=== PATIENT | female | born 1955 | race African-American/Black ===

== ENCOUNTER 2019-01-26 01:44 | Emergency (ER) | payer MEDICAID ==
[~2019-01-26] VITALS: Ht 162.6 cm; Wt 81.6 kg
--- NOTE | 2019-01-26 02:11 | NUR ---
C/C R EYE PAIN SINCE 8 PM, REDNESS NOTED, +BURNING TO ER BED 4, AWAITING MED EVAL
[2019-01-26] MEDS ORDERED: FLUORESCEIN SODIUM OPHTH 1 EA STRIP ONE (02:17)
[2019-01-26] MEDS ORDERED: TDAP [DIPH/PERTUSSIS/TET] 0.5 ML VIAL IM ONE ×2 (02:29→03:00)
[2019-01-26] MEDS ORDERED: TETRACAINE HCL 0.5% OPHTALMIC 15 ML BOTTLE OP ONE (02:30)
[2019-01-26 02:53] VITALS: BP 156/105
--- NOTE | 2019-01-26 02:53 | NUR ---
Patient discharged to home in stable condition. Written and verbal after care instructions given. Patient verbalizes understanding of instruction.
== END 2019-01-26 02:53 | disposition home or self-care (01) ==
LOC: ER 01:47
DX: S05.01XA Injury of conjunctiva and corneal abrasion without foreign body, right eye, initial encounter (principal); I10 Essential (primary) hypertension; Z85.3 Personal history of malignant neoplasm of breast; Z96.653 Presence of artificial knee joint, bilateral; X58.XXXA Exposure to other specified factors, initial encounter; Y93.89 Activity, other specified; Y92.89 Other specified places as the place of occurrence of the external cause; Y99.8 Other external cause status
CPT/HCPCS: 90715

== ENCOUNTER 2021-07-31 02:03 | Emergency (ER) | payer MEDICAID, OTHER ==
[~2021-07-31] VITALS: Ht 162.6 cm; Wt 90.7 kg
--- NOTE | 2021-07-31 02:24 | NUR ---
TO ER BED 10. [id number] FROM HOME C/O SYNCOPAL EPISODE WHILE IN THE BATHROOM. DENIES FALL. CONNECTED TO MONITOR. AWAITING MD STEVE
--- NOTE | 2021-07-31 02:53 | NUR ---
ADVERTISING DIRECTOR AT PT'S BEDSIDE
[2021-07-31 03:01] LABS: BASOPHILS % (AUTO) 0.6 % (0.0-2.0); EOSINOPHILS % (AUTO) 1.5 % (0.0-6.0); HEMATOCRIT 39 % (33-45); HEMOGLOBIN 12.8 g/dL (11.5-14.8); LYMPHOCYTES # (AUTO) 1.4 K/uL (0.8-4.8); LYMPHOCYTES % (AUTO) 28.1 % (20.0-44.0); MEAN CORPUSCULAR HGB CONC 32 g/dl (31.0-36.0); MEAN CORPUSCULAR VOLUME 84 fL (82-100); MONOCYTES # (AUTO) 0.5 K/uL (0.1-1.30); MONOCYTES % (AUTO) 9.9 % (2.0-12.0); NEUTROPHILS # (AUTO) 2.9 K/uL (1.8-8.9); NEUTROPHILS % (AUTO) 59.9 % (43.0-81.0); PLATELET COUNT (AUTO) 169 K/uL (150-450); RED BLOOD CELL COUNT(AUTO) 4.72 MIL/uL (4.0-5.2); WHITE BLOOD COUNT (AUTO) 4.9 K/uL (4.3-11.0)
[2021-07-31 03:15] LABS: ALBUMIN 3.6 g/dL (3.4-5.0); BILIRUBIN,DIRECT 0.1 mg/dL (0.0-0.2); BILIRUBIN,TOTAL 0.3 mg/dL (0.2-1.0); CALCIUM, SERUM 9.3 mg/dL (8.5-10.1); CREATININE 1.1 mg/dL (0.6-1.3); POTASSIUM 3.5 mmol/L (3.5-5.1); TOTAL PROTEIN, SERUM 7.9 g/dL (6.4-8.2)
--- NOTE | 2021-07-31 04:22 | NUR ---
Patient discharged to home in stable condition. Written and verbal after care instructions given. Patient verbalizes understanding of instruction.
[2021-07-31 05:12] VITALS: BP 154/83
== END 2021-07-31 05:13 | disposition home or self-care (01) ==
LOC: ER 02:06
DX: R55 Syncope and collapse (principal); I10 Essential (primary) hypertension; E11.9 Type 2 diabetes mellitus without complications; Z85.3 Personal history of malignant neoplasm of breast; Z96.653 Presence of artificial knee joint, bilateral
CPT/HCPCS: 36415; 70450-TC; 71045-TC; 80048-TC; 80076-TC; 85025-TC

== ENCOUNTER 2022-01-24 20:30 | Inpatient (IN) | payer OTHER ==
[~2022-01-24] VITALS: Ht 160 cm; Wt 86.2 kg
--- NOTE | 2022-01-24 22:07 | NUR ---
URINE COLLECTED AND SENT TO LAB
[2022-01-24] MEDS ORDERED: ONDANSETRON HCL/PF 4 MG/2 ML VIAL IVP ONE (22:30)
[2022-01-24] MEDS ORDERED: MORPHINE SULFATE INJ 2 MG/ML DISP.SYRIN IV ONE (22:30)
[2022-01-24] MEDS ORDERED: IV NS 0.9% 1,000 ML BAG IV ONE (22:30)
--- NOTE | 2022-01-24 22:39 | NUR ---
taken to radiology
--- NOTE | 2022-01-24 22:39 | NUR ---
blood drawn and sent to lab
[2022-01-24 22:46] LABS: BASOPHILS % (AUTO) 0.9 % (0.0-2.0); EOSINOPHILS % (AUTO) 2.4 % (0.0-6.0); HEMATOCRIT 40 % (33-45); HEMOGLOBIN 12.7 g/dL (11.5-14.8); LYMPHOCYTES # (AUTO) 1.7 K/uL (0.8-4.8); LYMPHOCYTES % (AUTO) 37.1 % (20.0-44.0); MEAN CORPUSCULAR HGB CONC 32 g/dl (31.0-36.0); MEAN CORPUSCULAR VOLUME 83 fL (82-100); MONOCYTES # (AUTO) 0.5 K/uL (0.1-1.30); MONOCYTES % (AUTO) 11.5 % (2.0-12.0); NEUTROPHILS # (AUTO) 2.2 K/uL (1.8-8.9); NEUTROPHILS % (AUTO) 48.1 % (43.0-81.0); PLATELET COUNT (AUTO) 181 K/uL (150-450); RED BLOOD CELL COUNT(AUTO) 4.88 MIL/uL (4.0-5.2); WHITE BLOOD COUNT (AUTO) 4.7 K/uL (4.3-11.0)
[2022-01-24 22:52] LABS: BILIRUBIN,URINE NEGATIVE (NEGATIVE); COLOR,URINE YELLOW (YELLOW); LEUKOCYTE ESTERASE ,URINE 1+ (NEGATIVE); NITRITE, URINE NEGATIVE (NEGATIVE); PROTEIN,URINE NEGATIVE (NEGATIVE); UGLUCOSE NEGATIVE (NEGATIVE); UROBILINOGEN,URINE 0.2 EU/dL (0.2)
[2022-01-24] MEDS ORDERED: ONDANSETRON HCL/PF 4 MG/2 ML VIAL ONE (22:58)
[2022-01-24] MEDS ORDERED: MORPHINE SULFATE INJ 4 MG/ML DISP.SYRIN ONE (22:58)
[2022-01-24 23:00] LABS: BACTERIA,URINE Few /HPF (None Seen); SQUAMOUS EPITHELIAL CELL,UR Moderate /HPF (None Seen)
[2022-01-24 23:09] LABS: CALCIUM, SERUM 8.7 mg/dL (8.5-10.1); CARBON DIOXIDE 30 mmol/L (21-32); CHLORIDE 105 mmol/L (98-107); GLUCOSE 89 mg/dL (74-106); POTASSIUM 3.5 mmol/L (3.5-5.1); SODIUM SERUM 137 mmol/L (136-145); UREA NITROGEN, BLOOD 15 mg/dL (7-18)
[2022-01-24 23:14] LABS: ALANINE AMINOTRANSFERASE 25 U/L (12-78); ALBUMIN 3.4 g/dL (3.4-5.0); ALKALINE PHOSPHATASE 113 U/L (46-116); ASPARTATE AMINOTRANSFERASE 27 U/L (15-37); BILIRUBIN,DIRECT 0.1 mg/dL (0.0-0.2); BILIRUBIN,TOTAL 0.3 mg/dL (0.2-1.0); LIPASE 142 U/L (73-393); TOTAL PROTEIN, SERUM 7.8 g/dL (6.4-8.2)
[2022-01-24] MEDS ORDERED: ASPIRIN EC 325 MG TABLET.DR PO ONE (23:18)
[2022-01-24] MEDS ORDERED: CEFTRIAXONE 1GM BAG (ER ONLY) 50 ML IV ONE (23:18)
[2022-01-24] MEDS ORDERED: CEFTRIAXONE 1GM BAG (ER ONLY) 1 GM/50 ML PIGGYBACK IV ONE (23:30)
[2022-01-24] MEDS ORDERED: ASPIRIN 325 MG TABLET PO ONE (23:30)
--- NOTE | 2022-01-25 00:15 | NUR ---
COVID ANTIGEN SWAB COLLECTED AND SENT TO LAB
[2022-01-25] MEDS ORDERED: ONDANSETRON HCL/PF 4 MG/2 ML VIAL IVP PRN (00:30)
[2022-01-25] MEDS ORDERED: IV NS 0.9% 1,000 ML IV PRN (00:30)
[2022-01-25] MEDS ORDERED: Z GUARD REMEDY 4 OZ OINT TP PRN (00:30)
[2022-01-25] MEDS ORDERED: ZOLPIDEM TARTRATE 5 MG TABLET PO PRN (00:30)
[2022-01-25] MEDS ORDERED: MAGNESIUM HYDROXIDE 30 ML UDC PO PRN (00:30)
[2022-01-25] MEDS ORDERED: MAG HYDROX/AL HYDROX/SIMETH 30 ML UDC PO PRN (00:30)
[2022-01-25] MEDS ORDERED: LEVO88TA5 PO (00:59)
[2022-01-25] MEDS ORDERED: HYDR25TA4 PO (00:59)
[2022-01-25] MEDS ORDERED: AMLO-213 PO (00:59)
[2022-01-25] MEDS ORDERED: AMLO-213 (00:59)
--- NOTE | 2022-01-25 01:39 | NUR ---
Patient is resting comfortably in bed with eyes closed. Easily aroused. VSS
--- NOTE | 2022-01-25 02:44 | NUR ---
PT SLEEPING, ATTACHED TO MONITOR, EASILY AROUSABLE.
--- NOTE | 2022-01-25 03:29 | NUR ---
Patient is resting comfortably in bed with eyes closed. Easily aroused. VSS
--- NOTE | 2022-01-25 04:18 | NUR ---
PT SLEEPING, ATTACHED TO MONITOR AND POX. VSS
--- NOTE | 2022-01-25 05:30 | NUR ---
Patient is resting comfortably in bed with eyes closed. Easily aroused. VSS
--- NOTE | 2022-01-25 06:45 | NUR ---
PT AWAKE, AMBULATED TO RESTROOM, NEEDS MET
--- NOTE | 2022-01-25 07:23 | NUR ---
REPORT GIVEN TO OBINNA JOY FOR BRANDY
[2022-01-25 08:05] LABS: BASOPHILS % (AUTO) 0.8 % (0.0-2.0); EOSINOPHILS % (AUTO) 2.3 % (0.0-6.0); HEMATOCRIT 37 % (33-45); HEMOGLOBIN 11.8 g/dL (11.5-14.8); LYMPHOCYTES # (AUTO) 1.2 K/uL (0.8-4.8); LYMPHOCYTES % (AUTO) 30.3 % (20.0-44.0); MEAN CORPUSCULAR HGB CONC 32 g/dl (31.0-36.0); MEAN CORPUSCULAR VOLUME 82 fL (82-100); MONOCYTES # (AUTO) 0.5 K/uL (0.1-1.30); MONOCYTES % (AUTO) 12.7 % (2.0-12.0); NEUTROPHILS # (AUTO) 2.2 K/uL (1.8-8.9); NEUTROPHILS % (AUTO) 53.9 % (43.0-81.0); PLATELET COUNT (AUTO) 164 K/uL (150-450); WHITE BLOOD COUNT (AUTO) 4.1 K/uL (4.3-11.0)
[2022-01-25 08:24] LABS: BILIRUBIN,TOTAL 0.3 mg/dL (0.2-1.0); CALCIUM, SERUM 7.8 mg/dL (8.5-10.1); CREATININE 0.9 mg/dL (0.6-1.3); MAGNESIUM 2.2 mg/dL (1.8-2.4); PHOSPHORUS 3.1 mg/dL (2.5-4.9); POTASSIUM 3.3 mmol/L (3.5-5.1); TOTAL PROTEIN, SERUM 6.9 g/dL (6.4-8.2)
[2022-01-25 08:28] LABS: THYROID STIMULATING HORMONE 8.728 uIU/mL (0.358-3.74)
[2022-01-25 09:32] LABS: CHOLESTEROL 184 mg/dL (<200); HDL CHOLESTEROL 56 mg/dL (40-60); LDL 118 mg/dL (0-99); TRIGLYCERIDES 37 mg/dL (30-150)
[2022-01-25] MEDS ORDERED: ATORVASTATIN 10 MG TABLET ONE (09:54)
--- NOTE | 2022-01-25 09:54 | NUR ---
GOT BED 313-2
[2022-01-25] MEDS ORDERED: ASPIRIN 81 MG TAB.CHEW ONE (09:55)
[2022-01-25] MEDS ORDERED: CARVEDILOL 3.125 MG TABLET ONE (09:55)
[2022-01-25] MEDS: ATORVASTATIN 10 MG TABLET PO SCH (10:00)
[2022-01-25] MEDS: CARVEDILOL 3.125 MG TABLET PO SCH ×2 (10:00→21:37)
[2022-01-25] MEDS: ASPIRIN 81 MG TAB.CHEW PO SCH (10:00)
--- NOTE | 2022-01-25 10:06 | NUR ---
REPORT GIVEN TO BENNETT YEBOAH FOR BRANDY
--- NOTE | 2022-01-25 11:27 | NUR ---
TRANSFERRED TO BED 313 IN STABLE CONDITION
--- NOTE | 2022-01-25 11:40 | NUR ---
TIMBER CRUISERSHOE TREER NOTES REPORT RECEIVED BY PHONE FROM OBINNA MAHER. RECEIVED PT FROM ER STAFF VIA PramanaJYOTI. PT IS AWAKE, ALERT ORIENTED X4, ABLE TO VERBALIZED NEEDS. IV ACCESS L HAND #20, SL, ON TELE MONITOR READING SB-58. ON RA, NO S/S OF SOB OR ACUTE DISTRESS AT THE MOMENT. C/O PAIN BACK PAIN 2-3/, WILL MEDICATE ORDERED, WILL REASSESS. VITALS, BP- 157/90, HR- 58, O2 SAT - 100%, RR- 16. PT IS AMBULATORY, BRP, SKIN INTACT. BELONGINGS CHECKED AND SIGNED BY PT. PT ORIENTED TO STAFF AND UNIT. SAFETY MEASURES IN PLACE, CALL LIGHT, TABLE WITHIN EASY REACH; WILL CONT WITH PLAN OF CARE DURING SHIFT.
[2022-01-25] MEDS: ACETAMINOPHEN 325 MG TABLET PO PRN ×2 (11:59→19:11)
[2022-01-25] MEDS ORDERED: NITROGLYCERIN 0.4 MG/TAB BOTTLE ONE (14:49)
[2022-01-25] MEDS ORDERED: METOPROLOL TARTRATE INJ 5 MG/5 ML AMPUL ONE (14:49)
[2022-01-25] MEDS ORDERED: ACETAMINOPHEN 325 MG TABLET ONE (14:49)
[2022-01-25] MEDS ORDERED: CT SWABBABLE VALVE TRANS SET 1 EA INFUS.SET MC ONE (14:49)
[2022-01-25] MEDS ORDERED: IV NS 0.9% 250 ML IV ONE (14:50)
[2022-01-25 20:00] VITALS: BP 119/40
--- NOTE | 2022-01-25 20:00 | NUR ---
FACILITIES MECHANICAL DESIGN ENGINEER OPENING NOTES; RECEIVED PATIENT AWAKE IN BED ACCOMPANIED BY FAMILY, BED IN LOW POSITION CALL LIGHTS WITHIN REACH, NO COMPLAIN OF PAIN AND DISCOMFORT AT THIS TIME,ON ROOM AIR SATURATING WELL, PATIENT IS A/OX4 AMBULATORY, ABLE TO MAKE NEEDS KNOWN, ON TELE MONITOR- SB-55, ON PAIN MANAGEMENT. WITH IV LINE AT LAHAND#22 WITH ONGOING 0.9NSS@75ML/HR INFUSING WELL, PATIENT KEPT CLEAN AND DRY ALL NEEDS MET WILL CONTINUE TO MONITOR
--- NOTE | 2022-01-25 20:35 | NUR ---
SPEECH THERAPIST CLOSING - PT IS AWAKE, ALERT ORIENTED X4, ABLE TO VERBALIZED NEEDS. IV ACCESS L HAND #20, SL, ON TELE MONITOR READING SR-67. ON RA, NO S/S OF SOB OR ACUTE DISTRESS AT THE MOMENT. C/O PAIN BACK PAIN 5/10, WILL MEDICATE ORDERED, WILL REASSESS. PT IS AMBULATORY, BRP. NEEDS MET, KEPT PT CLEAN DRY AND COMFORTABLE. SAFETY MEASURES IN PLACE, CALL LIGHT, TABLE WITHIN EASY REACH; ENDORSED TO PM SHIFT.
[2022-01-25] MEDS: CEFTRIAXONE 1 G in IV D5W 50 ML IV SCH (22:50)
[2022-01-25] MEDS: HYDROCODONE/APAP 5/325MG TABLET PO PRN (22:51)
[2022-01-26] VITALS: BP 118/58
--- NOTE | 2022-01-26 03:47 | NUR ---
RN NOTES: RECEIVED CRITICAL LAB OF TROPONIN -53, PREVIOUS WAS 56 LAB RESULT WAS TRENDING DOWN
[2022-01-26 05:00] VITALS: BP 120/58
--- NOTE | 2022-01-26 06:43 | NUR ---
MACHINE STUFFER OPENING NOTES: IN BED COMFORTABLY, AROUSABLE TO VERBAL STIMULI,BED IN LOW POSITION CALL LIGHTS WITHIN REACH, NO COMPLAIN OF PAIN AND DISCOMFORT AT THIS TIME,ON ROOM AIR SATURATING WELL, PATIENT OIS A/OX4 AMBULATORY ABLE TO MAKE NEEDS KNOWN, ON TELE [id number], PATIENT KEPT CLEAN AND DRY ALL NEEDS MET ENDORSE TO INCOMING SHIFT.
[2022-01-26 07:00] VITALS: BP 140/82
[2022-01-26 07:00] LABS: BASOPHILS % (AUTO) 0.9 % (0.0-2.0); EOSINOPHILS % (AUTO) 3.7 % (0.0-6.0); HEMATOCRIT 38 % (33-45); HEMOGLOBIN 12.1 g/dL (11.5-14.8); LYMPHOCYTES # (AUTO) 1.1 K/uL (0.8-4.8); MEAN CORPUSCULAR HGB CONC 32 g/dl (31.0-36.0); MEAN CORPUSCULAR VOLUME 82 fL (82-100); MONOCYTES # (AUTO) 0.3 K/uL (0.1-1.30); MONOCYTES % (AUTO) 10.2 % (2.0-12.0); NEUTROPHILS # (AUTO) 1.7 K/uL (1.8-8.9); NEUTROPHILS % (AUTO) 51.2 % (43.0-81.0); PLATELET COUNT (AUTO) 161 K/uL (150-450); RED BLOOD CELL COUNT(AUTO) 4.63 MIL/uL (4.0-5.2); WHITE BLOOD COUNT (AUTO) 3.2 K/uL (4.3-11.0)
[2022-01-26] MEDS: HYDROCODONE/APAP 5/325MG TABLET PO PRN ×2 (07:02→17:42)
[2022-01-26 07:43] LABS: CREATININE 0.8 mg/dL (0.6-1.3); MAGNESIUM 2.2 mg/dL (1.8-2.4); PHOSPHORUS 3.5 mg/dL (2.5-4.9); POTASSIUM 3.3 mmol/L (3.5-5.1)
[2022-01-26] MEDS: ASPIRIN 81 MG TAB.CHEW PO SCH (09:38)
[2022-01-26] MEDS: ATORVASTATIN 10 MG TABLET PO SCH (09:38)
[2022-01-26] MEDS: CARVEDILOL 3.125 MG TABLET PO SCH ×2 (09:43→21:14)
[2022-01-26] MEDS ORDERED: POTASSIUM CHLORIDE 20 MEQ TAB.PRT.SR PO SCH ×2 (11:00→18:00)
[2022-01-26] MEDS ORDERED: ASPI-1169 PO (14:20)
[2022-01-26] MEDS ORDERED: POTA20TA83 PO (14:20)
[2022-01-26 16:00] VITALS: BP 124/81
[2022-01-26 20:00] VITALS: BP 149/99
--- NOTE | 2022-01-26 20:20 | NUR ---
alert and orientated x4 talking on the phone smiling
--- NOTE | 2022-01-26 20:27 | NUR ---
RN CLOSE NOTE REPORT GIVEN TO INCOMING NURSE. VITAL SIGNS STABLE. NO ACUTE DISTRESS NOTED. PATIENT LEFT IN STABLE CONDITION.
[2022-01-26] MEDS: CEFTRIAXONE 1 G in IV D5W 50 ML IV SCH (23:08)
[2022-01-27] MEDS: HYDROCODONE/APAP 5/325MG TABLET PO PRN ×2 (03:39→12:57)
--- NOTE | 2022-01-27 04:05 | NUR ---
closing notes: alert and orientated X4 good about changing her position freq from side to side requested PO pain medication X! for left flank pain Sobieski given and effective ambulates independently to the bathroom
[2022-01-27 04:30] VITALS: BP 132/55
[2022-01-27 08:00] VITALS: BP 115/72
[2022-01-27] MEDS: ASPIRIN 81 MG TAB.CHEW PO SCH (10:15)
[2022-01-27] MEDS: CARVEDILOL 3.125 MG TABLET PO SCH ×2 (10:27→17:44)
[2022-01-27] MEDS: ATORVASTATIN 10 MG TABLET PO SCH (10:28)
[2022-01-27 17:44] VITALS: BP 141/88
[2022-01-27] MEDS: ACETAMINOPHEN 325 MG TABLET PO PRN (17:44)
== END 2022-01-27 18:30 | disposition home or self-care (01) | DRG 463 ==
LOC: ER 20:35 → TELE 01-25 10:18 → MED 01-26 09:46
PROVIDERS: ADMIT Nurse Practitioner Acute Care
DX: N39.0 Urinary tract infection, site not specified (principal); I21.A1 Myocardial infarction type 2; B96.89 Other specified bacterial agents as the cause of diseases classified elsewhere; E66.9 Obesity, unspecified; E78.5 Hyperlipidemia, unspecified; E11.9 Type 2 diabetes mellitus without complications; Z85.3 Personal history of malignant neoplasm of breast; N75.0 Cyst of Bartholin's gland; E89.0 Postprocedural hypothyroidism; Z92.21 Personal history of antineoplastic chemotherapy; Z96.653 Presence of artificial knee joint, bilateral; Z98.890 Other specified postprocedural states; Z98.891 History of uterine scar from previous surgery; I10 Essential (primary) hypertension; Z68.33 Body mass index [BMI] 33.0-33.9, adult; Z87.891 Personal history of nicotine dependence; Z87.39 Personal history of other diseases of the musculoskeletal system and connective tissue
CPT/HCPCS: 36415; 71045-TC; 75574; 80048-TC; 80053-TC; 80061-TC; 80076-TC; 81001; 83690-TC; 83735-TC; 84100-TC; 84439-TC; 84443-TC; 84484-TC; 85025-TC; 85730-TC; 87081-TC; 87086-TC; 93307-TC; C9803; G0378; J0696; J2270; J2405; J3490; J7030; J7050; J7060